=== PATIENT | male | born 1960 | race Caucasian/White ===

== ENCOUNTER 2019-11-27 14:23 | Inpatient (IN) | payer OTHER ==
[~2019-11-27] VITALS: Ht 170.2 cm; Wt 75.7 kg
[2019-11-27 14:50] VITALS: BP_SYST 93
[2019-11-27 15:55] LABS: BASOPHILS # (AUTO) 0.1 K/uL (0.0-0.2); BASOPHILS % (AUTO) 0.5 % (0.0-2.0); EOSINOPHILS # (AUTO) 0.2 K/uL (0.0-0.4); EOSINOPHILS % (AUTO) 1.1 % (0.0-4.0); HEMATOCRIT 25.9 % (36-54); HEMOGLOBIN 7.7 g/dL (14.0-18.0); LYMPHOCYTES # (AUTO) 2.7 K/uL (1.0-5.5); LYMPHOCYTES % (AUTO) 19.8 % (20.5-51.5); MEAN CORPUSCULAR HEMOGLOBIN 29 pg (27-31); MEAN CORPUSCULAR HGB CONC 30 % (32-36); MEAN CORPUSCULAR VOLUME 97 fL (79.0-98.0); MONOCYTES # (AUTO) 1.1 K/uL (0.0-1.0); MONOCYTES % (AUTO) 7.8 % (1.7-9.3); NEUTROPHILS # (AUTO) 9.7 K/uL (1.8-7.7); NEUTROPHILS % (AUTO) 70.8 % (40.0-70.0); PLATELET COUNT (AUTO) 273 K/uL (130-430); RED BLOOD CELL COUNT(AUTO) 2.68 MIL/uL (4.2-6.2); RED CELL DISTRIBUTION WIDTH 20.9 % (9.0-15.0); WHITE BLOOD COUNT (AUTO) 13.8 K/uL (4.8-10.8)
[2019-11-27 15:58] LABS: CALCIUM 8.3 mg/dL (8.4-11.0); CREATININE 4.19 mg/dL (0.55-1.30); POTASSIUM 5.7 mmol/L (3.5-5.1)
[2019-11-27 16:01] LABS: INR 1.1 (0.80-1.20); PROTHROMBIN TIME 10.9 SECS (9.5-12.5)
[2019-11-27 16:04] LABS: ALBUMIN 1.7 g/dL (3.4-4.8); TOTAL BILIRUBIN 0.4 mg/dL (0.0-1.0)
[2019-11-27] MEDS ORDERED: NACL 0.9% 2,000 ML IV ONE (16:15)
[2019-11-27] MEDS ORDERED: INSULIN REGULAR, HUMAN 10 UNITS/0.1 ML INJ IVP ONE (17:45)
[2019-11-27] MEDS ORDERED: cefTRIAXone 1 GM in D5W 50 ML IV ONE (17:45)
[2019-11-27 17:53] LABS: BILIRUBIN,URINE NEGATIVE (NEGATIVE); BLOOD, URINE 3+ (NEGATIVE); CLARITY/URINE SL CLOUDY (CLEAR); COLOR,URINE YELLOW (YELLOW); GLUCOSE,URINE 3+ (NEGATIVE); KETONES,URINE NEGATIVE (NEGATIVE); LEUKOCYTE ESTERASE ,URINE 2+ (NEGATIVE); NITRITE, URINE NEGATIVE (NEGATIVE); PH,URINE 7.5 (5.0-8.0); PROTEIN URINE 2+ (NEGATIVE); UROBILINOGEN,URINE 0.2 (0.2-1.0)
[2019-11-27] MEDS ORDERED: cefTRIAXone 1 GM VIAL ONE (17:58)
[2019-11-27 18:08] LABS: BACTERIA,URINE MODERATE /HPF (None Seen); WBC,URINE >100 /HPF (0-3); YEAST,URINE Few /HPF (None Seen)
[2019-11-27] MEDS ORDERED: NACL 0.9% 1,000 ML IV ONE (18:15)
[2019-11-27] MEDS ORDERED: FLEETMO RC (18:29)
[2019-11-27] MEDS ORDERED: SENN8.6T19 PO (18:29)
[2019-11-27] MEDS ORDERED: MOM PO (18:29)
[2019-11-27] MEDS ORDERED: CHLO1LIQ2 MC (18:29)
[2019-11-27] MEDS ORDERED: BISA10SU61 RC (18:29)
[2019-11-27] MEDS ORDERED: LANS15CA14 PO (18:29)
[2019-11-27] MEDS ORDERED: NOR10 PO (18:29)
[2019-11-27] MEDS ORDERED: ASCO500C18 PO (18:29)
[2019-11-27] MEDS ORDERED: HYDR-4038 PO (18:29)
[2019-11-27] MEDS ORDERED: LEVE500T9 PO (18:29)
[2019-11-27] MEDS ORDERED: BUSP10TA3 PO (18:29)
[2019-11-27] MEDS ORDERED: HYDR-4272 PO (18:29)
[2019-11-27] MEDS ORDERED: LACT1TAB11 PO (18:29)
[2019-11-27] MEDS ORDERED: LIP40 PO (18:29)
[2019-11-27] MEDS ORDERED: NITR0.4T47 SL ×2 (18:29)
[2019-11-27] MEDS ORDERED: QUET50TA PO (18:29)
[2019-11-27] MEDS ORDERED: FER300L PO (18:29)
[2019-11-27] MEDS ORDERED: METO50TA16 PO (18:31)
[2019-11-27] MEDS ORDERED: MULT9LIQ6 PO (18:31)
[2019-11-27] MEDS ORDERED: SENNOSIDES 8.6 MG TABLET PO PRN (22:00)
[2019-11-27] MEDS: hydrALAZINE HCL 25 MG TABLET PO SCH (22:00)
[2019-11-27] MEDS ORDERED: DEXTROSE 50% JECT 50 ML DISP.SYRIN IVP PRN (22:00)
[2019-11-27] MEDS ORDERED: SODIUM POLYSTYRENE SULFONATE 15 GM/60 ML UDBTL PO ONE (22:00)
[2019-11-27] MEDS ORDERED: NITROGLYCERIN 0.4 MG TAB.SUBL SL SCH (22:00)
[2019-11-27] MEDS ORDERED: MINERAL OIL 133 ML ENEMA RC PRN (22:00)
[2019-11-27] MEDS: PIPERACILLIN/TAZO 2.25G/DEX-IS 50 ML IV SCH (23:24)
[2019-11-27] MEDS: NACL 0.9% 1,000 ML IV SCH (23:25)
[2019-11-27] MEDS ORDERED: PIPERACILLIN/TAZOBACTAM 2.25 GM VIAL IV ONE (23:32)
[2019-11-27] MEDS ORDERED: INSULIN REGULAR, HUMAN 10 UNITS/0.1 ML INJ ONE (23:55)
[2019-11-27] MEDS: INSULIN REGULAR, HUMAN 100 UNITS/ML, 10 ML VIAL (humuLIN R) SUBCUT PRN (23:56)
[2019-11-28] MEDS ORDERED: ACETAMINOPHEN 650 MG/20.3 ML UDC ONE (01:01)
[2019-11-28] MEDS ORDERED: ACETAMINOPHEN 650 MG/20.3 ML UDC GT PRN (01:45)
[2019-11-28 02:30] VITALS: BP_SYST 93
[2019-11-28] MEDS ORDERED: PIPERACILLIN/TAZOBACTAM 2.25 GM VIAL IV ONE (02:36)
[2019-11-28] MEDS: hydrALAZINE HCL 25 MG TABLET PO SCH (06:00)
[2019-11-28] MEDS: NACL 0.9% 1,000 ML IV SCH (06:19)
[2019-11-28] MEDS: PIPERACILLIN/TAZO 2.25G/DEX-IS 50 ML IV SCH ×2 (06:21→12:36)
[2019-11-28 07:10] LABS: ALBUMIN 1.7 g/dL (3.4-4.8); CALCIUM 8.3 mg/dL (8.4-11.0); CREATININE 4.17 mg/dL (0.55-1.30); POTASSIUM 4.9 mmol/L (3.5-5.1); TOTAL BILIRUBIN 0.4 mg/dL (0.0-1.0)
[2019-11-28] MEDS: INSULIN REGULAR, HUMAN 100 UNITS/ML, 10 ML VIAL (humuLIN R) SUBCUT PRN (07:23)
[2019-11-28 08:24] VITALS: BP_SYST 108
[2019-11-28] MEDS ORDERED: amLODIPine BESYLATE 10 MG TABLET PO SCH (09:00)
[2019-11-28 09:01] LABS: BASOPHILS # (AUTO) 0.1 K/uL (0.0-0.2); BASOPHILS % (AUTO) 0.6 % (0.0-2.0); EOSINOPHILS # (AUTO) 0.2 K/uL (0.0-0.4); EOSINOPHILS % (AUTO) 1.5 % (0.0-4.0); HEMATOCRIT 25.7 % (36-54); HEMOGLOBIN 7.6 g/dL (14.0-18.0); LYMPHOCYTES % (AUTO) 15.8 % (20.5-51.5); MEAN CORPUSCULAR HEMOGLOBIN 29 pg (27-31); MEAN CORPUSCULAR HGB CONC 29 % (32-36); MEAN CORPUSCULAR VOLUME 97 fL (79.0-98.0); MONOCYTES # (AUTO) 0.7 K/uL (0.0-1.0); MONOCYTES % (AUTO) 5.4 % (1.7-9.3); NEUTROPHILS # (AUTO) 9.7 K/uL (1.8-7.7); NEUTROPHILS % (AUTO) 76.7 % (40.0-70.0); PLATELET COUNT (AUTO) 274 K/uL (130-430); RED BLOOD CELL COUNT(AUTO) 2.65 MIL/uL (4.2-6.2); RED CELL DISTRIBUTION WIDTH 20.2 % (9.0-15.0); WHITE BLOOD COUNT (AUTO) 12.7 K/uL (4.8-10.8)
[2019-11-28] MEDS ORDERED: LIDOCAINE 2%, 20 ML MDV INJ ONE (09:15)
[2019-11-28] MEDS: ALBUTEROL SULFATE 0.083% 2.5 MG/3 ML VIAL.NEB INH SCH ×5 (09:45→23:00)
[2019-11-28] MEDS ORDERED: IPRATROPIUM BROM 0.5 MG/2.5 ML VIAL.NEB (ATROVENT) INH PRN (09:45)
[2019-11-28] MEDS ORDERED: ALBUTEROL SULFATE 0.083% 2.5 MG/3 ML VIAL.NEB INH PRN (09:45)
[2019-11-28 10:09] VITALS: BP_SYST 108
[2019-11-28] MEDS: busPIRone HCL 5 MG TABLET PO SCH ×2 (10:51→21:00)
[2019-11-28] MEDS: ATORVASTATIN 20 MG TABLET PO SCH (10:51)
[2019-11-28] MEDS: QUEtiapine FUMARATE 25 MG TABLET PO SCH ×2 (10:51→21:00)
[2019-11-28] MEDS: METOPROLOL TARTRATE 50 MG TABLET PO SCH ×2 (10:52→21:00)
[2019-11-28] MEDS: levETIRAcetam 500 MG TABLET PO SCH ×2 (10:52→21:00)
[2019-11-28] MEDS: FERROUS SULFATE 300 MG/5 ML UDC PO SCH (10:52)
[2019-11-28] MEDS: IPRATROPIUM BROM 0.5 MG/2.5 ML VIAL.NEB (ATROVENT) INH SCH ×4 (11:00→23:00)
[2019-11-28 11:10] VITALS: BP_SYST 114
[2019-11-28] MEDS: 0.45% NACL 1,000 ML IV SCH ×2 (13:17→23:59)
[2019-11-28] MEDS: INSULIN LISPRO SLIDING SCALE 100 UNITS/ML VIAL (humaLOG) SUBCUT PRN ×2 (13:20→18:04)
[2019-11-28] MEDS ORDERED: BALSAM PERU/CASTOR OIL 60 GM OINT...G. TP PRN (14:45)
[2019-11-28 15:16] VITALS: BP_SYST 93
[2019-11-28] MEDS ORDERED: BALSAM PERU/CASTOR OIL 60 GM OINT...G. TP ONE (16:00)
[2019-11-28] MEDS: MENTHOL/ZINC OXIDE 113 GM OINT. TP PRN (16:38)
[2019-11-28] MEDS ORDERED: cefTRIAXone 1 GM in D5W 50 ML IV SCH (18:00)
[2019-11-28 20:00] VITALS: BP_SYST 109
[2019-11-28] MEDS: FLUCONAZOLE 100 mg/ NS 50 ML IV SCH (21:49)
[2019-11-28] MEDS: EMOLLIENT COMBINATION NO.73 78 GM CREAM..G. TP SCH (21:50)
[2019-11-28 23:54] LABS: CHLORIDE,URINE RANDOM 41 mmol/L (55-125)
[2019-11-29] MEDS: INSULIN LISPRO SLIDING SCALE 100 UNITS/ML VIAL (humaLOG) SUBCUT PRN ×4 (00:08→17:27)
[2019-11-29 01:27] VITALS: BP_SYST 118
[2019-11-29] MEDS: IPRATROPIUM BROM 0.5 MG/2.5 ML VIAL.NEB (ATROVENT) INH SCH ×6 (03:00→23:11)
[2019-11-29] MEDS: ALBUTEROL SULFATE 0.083% 2.5 MG/3 ML VIAL.NEB INH SCH ×6 (03:00→23:11)
[2019-11-29 07:14] LABS: BASOPHILS # (AUTO) 0.1 K/uL (0.0-0.2); BASOPHILS % (AUTO) 0.4 % (0.0-2.0); EOSINOPHILS # (AUTO) 0.6 K/uL (0.0-0.4); HEMATOCRIT 26.3 % (36-54); HEMOGLOBIN 7.7 g/dL (14.0-18.0); LYMPHOCYTES # (AUTO) 1.3 K/uL (1.0-5.5); LYMPHOCYTES % (AUTO) 10.1 % (20.5-51.5); MEAN CORPUSCULAR HEMOGLOBIN 28 pg (27-31); MEAN CORPUSCULAR HGB CONC 29 % (32-36); MEAN CORPUSCULAR VOLUME 96 fL (79.0-98.0); MONOCYTES # (AUTO) 0.5 K/uL (0.0-1.0); MONOCYTES % (AUTO) 3.9 % (1.7-9.3); NEUTROPHILS # (AUTO) 10.4 K/uL (1.8-7.7); NEUTROPHILS % (AUTO) 80.6 % (40.0-70.0); PLATELET COUNT (AUTO) 271 K/uL (130-430); RED BLOOD CELL COUNT(AUTO) 2.75 MIL/uL (4.2-6.2); RED CELL DISTRIBUTION WIDTH 19.9 % (9.0-15.0)
[2019-11-29 07:39] LABS: ALBUMIN 1.5 g/dL (3.4-4.8); CALCIUM 8.2 mg/dL (8.4-11.0); CREATININE 3.66 mg/dL (0.55-1.30); TOTAL BILIRUBIN 0.3 mg/dL (0.0-1.0)
[2019-11-29 07:43] VITALS: BP_SYST 139
[2019-11-29 08:03] LABS: CKMB RELATIVE INDEX 0.1 (0.0-2.9); CREATINE KINASE MB 2.3 ng/mL (0-3.6)
[2019-11-29] MEDS: ATORVASTATIN 20 MG TABLET PO SCH (10:19)
[2019-11-29] MEDS: busPIRone HCL 5 MG TABLET PO SCH ×2 (10:19→22:21)
[2019-11-29] MEDS: QUEtiapine FUMARATE 25 MG TABLET PO SCH ×2 (10:19→22:20)
[2019-11-29] MEDS: FERROUS SULFATE 300 MG/5 ML UDC PO SCH (10:19)
[2019-11-29] MEDS: METOPROLOL TARTRATE 50 MG TABLET PO SCH (10:20)
[2019-11-29] MEDS: EMOLLIENT COMBINATION NO.73 78 GM CREAM..G. TP SCH ×2 (10:22→22:21)
[2019-11-29] MEDS: MENTHOL/ZINC OXIDE 113 GM OINT. TP PRN ×2 (10:22→22:34)
[2019-11-29] MEDS: BALSAM PERU/CASTOR OIL 60 GM OINT...G. TP SCH (10:22)
[2019-11-29] MEDS: 0.45% NACL 1,000 ML IV SCH (10:24)
[2019-11-29 11:21] VITALS: BP_SYST 119
[2019-11-29] MEDS: metroNIDAZOLE 500 mg/NS 100 ML IV SCH ×2 (12:37→22:21)
[2019-11-29] MEDS: levETIRAcetam 500 MG TABLET PO SCH ×2 (12:37→22:20)
[2019-11-29] MEDS: D5W 1,000 ML IV SCH (12:42)
[2019-11-29] MEDS: CEFEPIME 1 GM in D5W 50 ML IV SCH (14:09)
[2019-11-29 15:07] VITALS: BP_SYST 117
[2019-11-29 20:00] VITALS: BP_SYST 123
[2019-11-29] MEDS: FLUCONAZOLE 100 mg/ NS 50 ML IV SCH (20:02)
[2019-11-30] MEDS: INSULIN LISPRO SLIDING SCALE 100 UNITS/ML VIAL (humaLOG) SUBCUT PRN ×5 (00:43→23:29)
[2019-11-30] MEDS: D5W 1,000 ML IV SCH ×4 (00:44→23:36)
[2019-11-30 02:22] VITALS: BP_SYST 100
[2019-11-30 02:54] LABS: TOTAL IRON BIND. CAPACITY 144 ug/dL (250-450)
[2019-11-30] MEDS: IPRATROPIUM BROM 0.5 MG/2.5 ML VIAL.NEB (ATROVENT) INH SCH ×5 (03:00→19:00)
[2019-11-30] MEDS: ALBUTEROL SULFATE 0.083% 2.5 MG/3 ML VIAL.NEB INH SCH ×5 (03:00→19:00)
[2019-11-30 07:23] LABS: BASOPHILS % (AUTO) 0.4 % (0.0-2.0); EOSINOPHILS # (AUTO) 0.5 K/uL (0.0-0.4); EOSINOPHILS % (AUTO) 6.3 % (0.0-4.0); LYMPHOCYTES # (AUTO) 1.3 K/uL (1.0-5.5); LYMPHOCYTES % (AUTO) 14.8 % (20.5-51.5); MEAN CORPUSCULAR HEMOGLOBIN 29 pg (27-31); MEAN CORPUSCULAR HGB CONC 30 % (32-36); MEAN CORPUSCULAR VOLUME 97 fL (79.0-98.0); MONOCYTES # (AUTO) 0.3 K/uL (0.0-1.0); NEUTROPHILS # (AUTO) 6.5 K/uL (1.8-7.7); NEUTROPHILS % (AUTO) 74.5 % (40.0-70.0); PLATELET COUNT (AUTO) 239 K/uL (130-430); RED BLOOD CELL COUNT(AUTO) 2.36 MIL/uL (4.2-6.2); WHITE BLOOD COUNT (AUTO) 8.7 K/uL (4.8-10.8)
[2019-11-30 07:27] LABS: CALCIUM 8.3 mg/dL (8.4-11.0); CREATININE 3.48 mg/dL (0.55-1.30); POTASSIUM 3.4 mmol/L (3.5-5.1)
[2019-11-30 07:28] LABS: PHOSPHORUS 4.1 mg/dL (2.7-4.5)
[2019-11-30 08:00] VITALS: BP_SYST 97
[2019-11-30 08:33] LABS: HEMATOCRIT 22.8 % (36-54); HEMOGLOBIN 6.9 g/dL (14.0-18.0)
[2019-11-30] MEDS: INSULIN NPH 100 UNITS/ML 10 ML VIAL SUBCUT SCH ×2 (08:51→17:20)
[2019-11-30] MEDS: levETIRAcetam 500 MG TABLET PO SCH ×2 (08:52→21:02)
[2019-11-30] MEDS: busPIRone HCL 5 MG TABLET PO SCH ×2 (08:52→21:02)
[2019-11-30] MEDS: QUEtiapine FUMARATE 25 MG TABLET PO SCH ×2 (08:52→21:02)
[2019-11-30] MEDS: FERROUS SULFATE 300 MG/5 ML UDC PO SCH (08:52)
[2019-11-30] MEDS: metroNIDAZOLE 500 mg/NS 100 ML IV SCH ×2 (08:53→21:02)
[2019-11-30] MEDS ORDERED: SOD FERRIC GLUC COMPLEX/SUC 125 MG in NS 100 ML IV ONE (09:00)
[2019-11-30] MEDS: CEFEPIME 1 GM in D5W 50 ML IV SCH (11:37)
[2019-11-30 12:14] VITALS: BP_SYST 102
[2019-11-30 16:16] LABS: HEMATOCRIT 24.2 % (36-54); HEMOGLOBIN 7.5 g/dL (14.0-18.0)
[2019-11-30 16:41] VITALS: BP_SYST 132
[2019-11-30 16:43] VITALS: BP_SYST 109
[2019-11-30] MEDS: EMOLLIENT COMBINATION NO.73 78 GM CREAM..G. TP SCH ×2 (16:50→21:03)
[2019-11-30] MEDS: BALSAM PERU/CASTOR OIL 60 GM OINT...G. TP SCH (16:50)
[2019-11-30] MEDS ORDERED: INSULIN Lispro 100 UNITS/ML VIAL (humaLOG) SUBCUT ONE ×2 (17:30)
[2019-11-30] MEDS: FLUCONAZOLE 100 mg/ NS 50 ML IV SCH (19:16)
[2019-11-30 21:00] VITALS: BP_SYST 100
[2019-11-30 22:22] LABS: INR 1.1 (0.80-1.20); PROTHROMBIN TIME 10.9 SECS (9.5-12.5)
[2019-12-01 02:42] VITALS: BP_SYST 106
[2019-12-01] MEDS: INSULIN LISPRO SLIDING SCALE 100 UNITS/ML VIAL (humaLOG) SUBCUT PRN ×5 (06:00→23:45)
[2019-12-01] MEDS: INSULIN NPH 100 UNITS/ML 10 ML VIAL SUBCUT SCH (06:01)
[2019-12-01 07:21] LABS: BASOPHILS % (AUTO) 0.4 % (0.0-2.0); EOSINOPHILS # (AUTO) 0.7 K/uL (0.0-0.4); EOSINOPHILS % (AUTO) 6.8 % (0.0-4.0); HEMATOCRIT 23.8 % (36-54); HEMOGLOBIN 7.3 g/dL (14.0-18.0); LYMPHOCYTES # (AUTO) 1.4 K/uL (1.0-5.5); LYMPHOCYTES % (AUTO) 13.6 % (20.5-51.5); MEAN CORPUSCULAR HEMOGLOBIN 30 pg (27-31); MEAN CORPUSCULAR HGB CONC 31 % (32-36); MEAN CORPUSCULAR VOLUME 96 fL (79.0-98.0); MONOCYTES # (AUTO) 0.3 K/uL (0.0-1.0); MONOCYTES % (AUTO) 2.7 % (1.7-9.3); NEUTROPHILS # (AUTO) 7.9 K/uL (1.8-7.7); NEUTROPHILS % (AUTO) 76.5 % (40.0-70.0); PLATELET COUNT (AUTO) 242 K/uL (130-430); RED BLOOD CELL COUNT(AUTO) 2.48 MIL/uL (4.2-6.2); RED CELL DISTRIBUTION WIDTH 19.3 % (9.0-15.0); WHITE BLOOD COUNT (AUTO) 10.4 K/uL (4.8-10.8)
[2019-12-01] MEDS ORDERED: INSULIN Lispro 100 UNITS/ML VIAL (humaLOG) SUBCUT ONE (07:21)
[2019-12-01] MEDS: IPRATROPIUM BROM 0.5 MG/2.5 ML VIAL.NEB (ATROVENT) INH SCH ×4 (07:38→20:06)
[2019-12-01 07:39] LABS: ALBUMIN 1.4 g/dL (3.4-4.8); CALCIUM 8.5 mg/dL (8.4-11.0); CREATININE 3.17 mg/dL (0.55-1.30); PHOSPHORUS 3.8 mg/dL (2.7-4.5); POTASSIUM 3.6 mmol/L (3.5-5.1); TOTAL BILIRUBIN 0.2 mg/dL (0.0-1.0)
[2019-12-01] MEDS: ALBUTEROL SULFATE 0.083% 2.5 MG/3 ML VIAL.NEB INH SCH ×4 (07:39→20:06)
[2019-12-01] MEDS: BALSAM PERU/CASTOR OIL 60 GM OINT...G. TP SCH (09:00)
[2019-12-01] MEDS ORDERED: NACL 0.9% 1,000 ML IV SCH (09:00)
[2019-12-01] MEDS ORDERED: QUEtiapine FUMARATE 25 MG TABLET PO SCH (09:00)
[2019-12-01] MEDS ORDERED: D5W 1,000 ML IV SCH (09:15)
[2019-12-01] MEDS: FERROUS SULFATE 300 MG/5 ML UDC PO SCH (09:24)
[2019-12-01] MEDS: levETIRAcetam 500 MG TABLET PO SCH ×2 (09:25→21:59)
[2019-12-01] MEDS: metroNIDAZOLE 500 mg/NS 100 ML IV SCH ×2 (09:26→21:59)
[2019-12-01] MEDS: INSULIN NPH/REGULAR 70-30, 100 UNITS/ML, 10 ML VIAL SUBCUT SCH ×2 (09:28→17:35)
[2019-12-01] MEDS: CEFEPIME 1 GM in D5W 50 ML IV SCH (12:29)
[2019-12-01] MEDS: MUPIROCIN 2% TOPICAL OINTMENT 22 GM NS SCH ×2 (12:30→21:59)
[2019-12-01] MEDS: HYDROCORTISONE 1%, 28.35 GM TOPICAL CREAM TP SCH ×2 (12:30→21:59)
[2019-12-01] MEDS: EMOLLIENT COMBINATION NO.73 78 GM CREAM..G. TP SCH ×2 (12:32→22:00)
[2019-12-01 12:46] VITALS: BP_SYST 115
[2019-12-01 14:06] LABS: FOLATE (FOLIC ACID) >20.0 ng/mL (>3.0)
[2019-12-01 16:00] VITALS: BP_SYST 112
[2019-12-01] MEDS: FLUCONAZOLE 100 mg/ NS 50 ML IV SCH (17:39)
[2019-12-01 21:56] VITALS: BP_SYST 116
[2019-12-02 00:36] VITALS: BP_SYST 113
[2019-12-02] MEDS: INSULIN LISPRO SLIDING SCALE 100 UNITS/ML VIAL (humaLOG) SUBCUT PRN ×4 (06:07→23:15)
[2019-12-02] MEDS: INSULIN NPH/REGULAR 70-30, 100 UNITS/ML, 10 ML VIAL SUBCUT SCH ×2 (06:07→17:34)
[2019-12-02 07:09] LABS: BASOPHILS # (AUTO) 0.1 K/uL (0.0-0.2); BASOPHILS % (AUTO) 0.4 % (0.0-2.0); EOSINOPHILS # (AUTO) 0.6 K/uL (0.0-0.4); EOSINOPHILS % (AUTO) 5.7 % (0.0-4.0); HEMATOCRIT 24.2 % (36-54); HEMOGLOBIN 7.4 g/dL (14.0-18.0); LYMPHOCYTES # (AUTO) 1.2 K/uL (1.0-5.5); MEAN CORPUSCULAR HEMOGLOBIN 29 pg (27-31); MEAN CORPUSCULAR HGB CONC 31 % (32-36); MEAN CORPUSCULAR VOLUME 95 fL (79.0-98.0); MONOCYTES # (AUTO) 0.4 K/uL (0.0-1.0); MONOCYTES % (AUTO) 3.6 % (1.7-9.3); NEUTROPHILS # (AUTO) 8.9 K/uL (1.8-7.7); NEUTROPHILS % (AUTO) 79.3 % (40.0-70.0); PLATELET COUNT (AUTO) 265 K/uL (130-430); RED BLOOD CELL COUNT(AUTO) 2.55 MIL/uL (4.2-6.2); RED CELL DISTRIBUTION WIDTH 18.7 % (9.0-15.0); WHITE BLOOD COUNT (AUTO) 11.2 K/uL (4.8-10.8)
[2019-12-02 07:13] LABS: CALCIUM 8.8 mg/dL (8.4-11.0); CREATININE 2.74 mg/dL (0.55-1.30); POTASSIUM 3.8 mmol/L (3.5-5.1)
[2019-12-02] MEDS: IPRATROPIUM BROM 0.5 MG/2.5 ML VIAL.NEB (ATROVENT) INH SCH ×5 (07:55→23:00)
[2019-12-02] MEDS: ALBUTEROL SULFATE 0.083% 2.5 MG/3 ML VIAL.NEB INH SCH ×5 (07:55→23:00)
[2019-12-02 08:00] VITALS: BP_SYST 103
[2019-12-02] MEDS ORDERED: FERROUS SULFATE 300 MG/5 ML UDC GT SCH (08:57)
[2019-12-02] MEDS ORDERED: SENNOSIDES 8.6 MG TABLET GT PRN (08:59)
[2019-12-02] MEDS ORDERED: COMMUNICATION ORDER XX ONE (09:00)
[2019-12-02] MEDS: LevETIRAcetam 500 MG/5 ML UDC ORAL LIQUID GT SCH ×2 (09:24→20:15)
[2019-12-02] MEDS: FERROUS SULFATE 300 MG/5 ML UDC GT SCH (09:24)
[2019-12-02] MEDS: metroNIDAZOLE 500 mg/NS 100 ML IV SCH ×2 (09:25→20:14)
[2019-12-02] MEDS: MUPIROCIN 2% TOPICAL OINTMENT 22 GM NS SCH ×2 (09:28→20:18)
[2019-12-02] MEDS: BALSAM PERU/CASTOR OIL 60 GM OINT...G. TP SCH (09:29)
[2019-12-02] MEDS: HYDROCORTISONE 1%, 28.35 GM TOPICAL CREAM TP SCH ×2 (09:30→20:18)
[2019-12-02] MEDS: EMOLLIENT COMBINATION NO.73 78 GM CREAM..G. TP SCH ×2 (09:31→20:15)
[2019-12-02] MEDS ORDERED: CEFTAZIDIME 1 GM in D5W 50 ML IV SCH (11:00)
[2019-12-02 11:20] VITALS: BP_SYST 151
[2019-12-02] MEDS: 0.45% NACL 1,000 ML IV SCH (12:36)
[2019-12-02] MEDS: CEFEPIME 1 GM in D5W 50 ML IV SCH (12:37)
[2019-12-02 15:27] VITALS: BP_SYST 119
[2019-12-02] MEDS ORDERED: INSULIN REGULAR, HUMAN 100 UNITS/ML, 10 ML VIAL SUBCUT ONE (17:45)
[2019-12-02] MEDS: FLUCONAZOLE 100 mg/ NS 50 ML IV SCH (17:53)
[2019-12-02 20:05] VITALS: BP_SYST 121
[2019-12-02] MEDS ORDERED: CEFTAZIDIME 1 GM VIAL ONE (21:59)
[2019-12-02] MEDS ORDERED: CEFTAZIDIME 1 GM in D5W 50 ML IV ONE (22:00)
[2019-12-03 00:37] VITALS: BP_SYST 154
[2019-12-03] MEDS: ALBUTEROL SULFATE 0.083% 2.5 MG/3 ML VIAL.NEB INH SCH ×6 (03:00→23:40)
[2019-12-03] MEDS: IPRATROPIUM BROM 0.5 MG/2.5 ML VIAL.NEB (ATROVENT) INH SCH ×6 (03:00→23:40)
[2019-12-03] MEDS: 0.45% NACL 1,000 ML IV SCH ×2 (04:55→10:58)
[2019-12-03] MEDS: INSULIN LISPRO SLIDING SCALE 100 UNITS/ML VIAL (humaLOG) SUBCUT PRN ×4 (06:06→23:36)
[2019-12-03] MEDS ORDERED: INSULIN NPH/REGULAR 70-30, 100 UNITS/ML, 10 ML VIAL SUBCUT SCH (07:00)
[2019-12-03 07:09] LABS: BASOPHILS # (AUTO) 0.1 K/uL (0.0-0.2); BASOPHILS % (AUTO) 0.6 % (0.0-2.0); EOSINOPHILS # (AUTO) 0.6 K/uL (0.0-0.4); EOSINOPHILS % (AUTO) 4.4 % (0.0-4.0); HEMATOCRIT 26.2 % (36-54); HEMOGLOBIN 8.2 g/dL (14.0-18.0); LYMPHOCYTES # (AUTO) 1.1 K/uL (1.0-5.5); LYMPHOCYTES % (AUTO) 8.4 % (20.5-51.5); MEAN CORPUSCULAR HEMOGLOBIN 30 pg (27-31); MEAN CORPUSCULAR HGB CONC 31 % (32-36); MEAN CORPUSCULAR VOLUME 95 fL (79.0-98.0); MONOCYTES # (AUTO) 0.5 K/uL (0.0-1.0); MONOCYTES % (AUTO) 3.7 % (1.7-9.3); NEUTROPHILS % (AUTO) 82.9 % (40.0-70.0); PLATELET COUNT (AUTO) 309 K/uL (130-430); RED BLOOD CELL COUNT(AUTO) 2.76 MIL/uL (4.2-6.2); RED CELL DISTRIBUTION WIDTH 18.7 % (9.0-15.0); WHITE BLOOD COUNT (AUTO) 13.3 K/uL (4.8-10.8)
[2019-12-03 07:25] LABS: ALBUMIN 1.4 g/dL (3.4-4.8); CALCIUM 9.2 mg/dL (8.4-11.0); CREATININE 2.43 mg/dL (0.55-1.30); PHOSPHORUS 2.9 mg/dL (2.7-4.5); POTASSIUM 3.8 mmol/L (3.5-5.1); TOTAL BILIRUBIN 0.2 mg/dL (0.0-1.0)
[2019-12-03 08:00] VITALS: BP_SYST 117
[2019-12-03] MEDS: metroNIDAZOLE 500 mg/NS 100 ML IV SCH ×2 (08:02→20:50)
[2019-12-03] MEDS: FERROUS SULFATE 300 MG/5 ML UDC GT SCH (08:02)
[2019-12-03] MEDS: LevETIRAcetam 500 MG/5 ML UDC ORAL LIQUID GT SCH ×2 (08:02→20:49)
[2019-12-03] MEDS: EMOLLIENT COMBINATION NO.73 78 GM CREAM..G. TP SCH ×2 (08:03→20:53)
[2019-12-03] MEDS: HYDROCORTISONE 1%, 28.35 GM TOPICAL CREAM TP SCH ×2 (08:03→20:52)
[2019-12-03] MEDS: BALSAM PERU/CASTOR OIL 60 GM OINT...G. TP SCH (08:03)
[2019-12-03] MEDS: MUPIROCIN 2% TOPICAL OINTMENT 22 GM NS SCH ×2 (08:04→20:51)
[2019-12-03] MEDS: CEFTAZIDIME 1 GM in D5W 50 ML IV SCH ×2 (10:58→23:25)
[2019-12-03] MEDS ORDERED: INSULIN NPH 100 UNITS/ML 10 ML VIAL SUBCUT ONE (11:00)
[2019-12-03 12:23] VITALS: BP_SYST 122
[2019-12-03 16:30] VITALS: BP_SYST 139
[2019-12-03] MEDS: FLUCONAZOLE 100 mg/ NS 50 ML IV SCH (18:13)
[2019-12-03] MEDS ORDERED: INSULIN NPH 100 UNITS/ML 10 ML VIAL SUBCUT SCH (19:00)
[2019-12-03 20:15] VITALS: BP_SYST 137
[2019-12-04 00:08] VITALS: BP_SYST 139
[2019-12-04] MEDS: IPRATROPIUM BROM 0.5 MG/2.5 ML VIAL.NEB (ATROVENT) INH SCH ×4 (03:00→15:05)
[2019-12-04] MEDS: ALBUTEROL SULFATE 0.083% 2.5 MG/3 ML VIAL.NEB INH SCH ×4 (03:00→15:05)
[2019-12-04] MEDS: INSULIN NPH 100 UNITS/ML 10 ML VIAL SUBCUT SCH ×2 (03:01→10:21)
[2019-12-04] MEDS: INSULIN LISPRO SLIDING SCALE 100 UNITS/ML VIAL (humaLOG) SUBCUT PRN ×4 (03:04→17:33)
[2019-12-04 04:00] VITALS: BP_SYST 126
[2019-12-04 06:41] LABS: BASOPHILS # (AUTO) 0.1 K/uL (0.0-0.2); BASOPHILS % (AUTO) 0.5 % (0.0-2.0); EOSINOPHILS # (AUTO) 0.6 K/uL (0.0-0.4); EOSINOPHILS % (AUTO) 5.3 % (0.0-4.0); HEMATOCRIT 25.5 % (36-54); HEMOGLOBIN 7.9 g/dL (14.0-18.0); LYMPHOCYTES # (AUTO) 1.5 K/uL (1.0-5.5); LYMPHOCYTES % (AUTO) 13.1 % (20.5-51.5); MEAN CORPUSCULAR HEMOGLOBIN 30 pg (27-31); MEAN CORPUSCULAR HGB CONC 31 % (32-36); MEAN CORPUSCULAR VOLUME 95 fL (79.0-98.0); MONOCYTES # (AUTO) 0.4 K/uL (0.0-1.0); NEUTROPHILS # (AUTO) 8.7 K/uL (1.8-7.7); NEUTROPHILS % (AUTO) 77.1 % (40.0-70.0); PLATELET COUNT (AUTO) 337 K/uL (130-430); RED BLOOD CELL COUNT(AUTO) 2.68 MIL/uL (4.2-6.2); RED CELL DISTRIBUTION WIDTH 18.2 % (9.0-15.0); WHITE BLOOD COUNT (AUTO) 11.3 K/uL (4.8-10.8)
[2019-12-04] MEDS: 0.45% NACL 1,000 ML IV SCH (06:43)
[2019-12-04 06:55] LABS: CALCIUM 9.7 mg/dL (8.4-11.0); CREATININE 2.18 mg/dL (0.55-1.30); POTASSIUM 3.6 mmol/L (3.5-5.1)
[2019-12-04 09:58] VITALS: BP_SYST 126
[2019-12-04] MEDS: LevETIRAcetam 500 MG/5 ML UDC ORAL LIQUID GT SCH (09:59)
[2019-12-04] MEDS: FERROUS SULFATE 300 MG/5 ML UDC GT SCH (10:00)
[2019-12-04] MEDS: metroNIDAZOLE 500 mg/NS 100 ML IV SCH (10:00)
[2019-12-04] MEDS: BALSAM PERU/CASTOR OIL 60 GM OINT...G. TP SCH (10:01)
[2019-12-04] MEDS: MENTHOL/ZINC OXIDE 113 GM OINT. TP PRN (10:02)
[2019-12-04] MEDS: MUPIROCIN 2% TOPICAL OINTMENT 22 GM NS SCH (10:03)
[2019-12-04] MEDS: HYDROCORTISONE 1%, 28.35 GM TOPICAL CREAM TP SCH (10:46)
[2019-12-04] MEDS: EMOLLIENT COMBINATION NO.73 78 GM CREAM..G. TP SCH (10:47)
[2019-12-04] MEDS: CEFTAZIDIME 1 GM in D5W 50 ML IV SCH (12:09)
[2019-12-04 12:32] VITALS: BP_SYST 144
[2019-12-04] MEDS ORDERED: INSU100V SUBCUT (12:59)
[2019-12-04] MEDS ORDERED: SSNPH SUBCUT (12:59)
[2019-12-04] MEDS ORDERED: CEFT1PIG6 IV (12:59)
[2019-12-04] MEDS ORDERED: D5W 500 ML IV ONE (15:00)
[2019-12-04] MEDS ORDERED: INSULIN NPH 100 UNITS/ML 10 ML VIAL SUBCUT ONE (15:15)
[2019-12-04] MEDS ORDERED: COMMUNICATION ORDER XX ONE (15:15)
[2019-12-04 16:43] VITALS: BP_SYST 135
[2019-12-04 17:49] VITALS: BP_SYST 135
[2019-12-04] MEDS ORDERED: FLU VACC QS2019-20 36MOS UP/PF 60 MCG/0.5 ML SYRINGE I.M. PRN (18:15)
[2019-12-04] MEDS: FLUCONAZOLE 100 mg/ NS 50 ML IV SCH (18:19)
[2019-12-04] MEDS ORDERED: INSULIN NPH 100 UNITS/ML 10 ML VIAL SUBCUT SCH (22:00)
== END 2019-12-04 19:05 | DRG 871 ==
LOC: SED 14:23 → STU 19:31
PROVIDERS: ADMIT Internal Medicine Hospice and Palliative Medicine; ATTEND Family Medicine
PROC: 30233N1 Transfusion of Nonautologous Red Blood Cells into Peripheral Vein, Percutaneous Approach (ICD-10-PCS; principal; 2019-11-30)
DX: A41.50 Gram-negative sepsis, unspecified (principal); E11.00 Type 2 diabetes mellitus with hyperosmolarity without nonketotic hyperglycemic-hyperosmolar coma (NKHHC); G93.41 Metabolic encephalopathy; J69.0 Pneumonitis due to inhalation of food and vomit; J96.20 Acute and chronic respiratory failure, unspecified whether with hypoxia or hypercapnia; R53.2 Functional quadriplegia; J15.9 Unspecified bacterial pneumonia; R65.21 Severe sepsis with septic shock; N17.0 Acute kidney failure with tubular necrosis; N39.0 Urinary tract infection, site not specified; E46 Unspecified protein-calorie malnutrition; E87.0 Hyperosmolality and hypernatremia; Z99.11 Dependence on respirator [ventilator] status; D64.9 Anemia, unspecified; E11.22 Type 2 diabetes mellitus with diabetic chronic kidney disease; E11.65 Type 2 diabetes mellitus with hyperglycemia; E86.0 Dehydration; I12.9 Hypertensive chronic kidney disease with stage 1 through stage 4 chronic kidney disease, or unspecified chronic kidney disease; L40.9 Psoriasis, unspecified; N18.9 Chronic kidney disease, unspecified; R13.10 Dysphagia, unspecified; Y95 Nosocomial condition; I69.365 Other paralytic syndrome following cerebral infarction, bilateral; Z68.26 Body mass index [BMI] 26.0-26.9, adult; Z79.899 Other long term (current) drug therapy
CPT/HCPCS: 36415; 36600; 70450-TC; 71045; 76770; 80048; 80053; 81000-TC; 82272; 82435-TC; 82550-TC; 82553-TC; 82570-TC; 82607; 82746; 82803-TC; 82962; 83036; 83051; 83540-TC; 83550-TC; 83605; 83735-TC; 84100-TC; 84302-TC; 84443-TC; 84484; 85014-TC; 85025; 85049-TC; 85384-TC; 85610-TC; 85730-TC; 86886; 86900; 86901; 86920; 87040-TC; 87081; 87086; 87186-TC; 93005; 94640; 94760; 96361; 96365; 96375; 99291; G0378; J0692; J0696; J0713; J1450; J1815; J2543; J2916; J3490; J7030; J7050; J7060; J7613; P9021